=== PATIENT | female | born 1955 | race Caucasian/White ===

== ENCOUNTER → 2024-02-15 10:51 | Outpatient (REF) | payer OTHER, SELFPAY | LOC: HWRAD 10:51 | PROVIDERS: ATTENDING PHYSICIAN Internal Medicine Critical Care Medicine; FAMILY PHYSICIAN Nurse Practitioner Family | DX: Z87.891 Personal history of nicotine dependence (principal) | CPT/HCPCS: 71271 ==

== ENCOUNTER 2024-06-09 20:07 | Inpatient (IN) | payer OTHER, SELFPAY ==
[2024-06-09] VITALS (8 sets, daily range): BP systolic 105–177; BP diastolic 67–104; BMI 21.0
--- NOTE | 2024-06-09 13:00 | ED.GENMED ---
ED Provider Triage
<Darryn Huertas PA-C - Last Filed: 06/09/24 15:41>
-
Patient seen by provider in Triage?: Seen in Triage
69 yo female presents with SOB and cough/congestion x 2 days. hx of COPD. Wheezing when lying flat. No f/c/s
Lungs clear on auscultation, looks well
Check viral swabs and CXR
History of Present Illness
<Darryn Huertas PA-C - Last Filed: 06/09/24 15:41>
General
Chief Complaint: Cold/Flu/URI Symptoms
Time Seen by Provider: 06/09/24 17:38
<Vito Coronado MD - Last Filed: 06/10/24 10:25>
General
Source: patient
Exam Limitations: none
Nursing documentation reviewed up to this point in time: agreed with
History of Present Illness
History of Present Illness:
Patient with history of COPD, presents ED secondary to worsening cough with shortness of breath over the past 2 days. Denies fever but reports chills sensation. Denies chest pain. Denies nausea, vomiting, or diarrhea. Denies rash. Denies
headache. Denies sore throat. Patient does report decreased appetite. Denies sick contact. Denies recent travel.
Review of Systems
<Vito Coronado MD - Last Filed: 06/10/24 10:25>
Review of Systems
Allergies reviewed?: Yes
All Other Systems: ROS reviewed and negative except as documented in HPI and ROS
Constitutional: Reports chills; Denies fever
EENT: Reports no symptoms
Respiratory: Reports cough and trouble breathing
Cardiac: Reports no symptoms; Denies chest pain
ABD/GI: Reports no symptoms; Denies vomiting or diarrhea
Musculoskeletal: Reports no symptoms
Skin: Reports no symptoms
Neurological: Reports no symptoms
Phy Exam
<Vito Coronado MD - Last Filed: 06/10/24 10:25>
Physical Exam
Physical Exam:
Physical Exam
General: mild respiratory distress, not acutely ill. afebrile
Head: nc/at. eomi
Neck: supple. normal range of motion.
Heart: s1/s2 regular rate and rhythm, no murmur. equal radial pulses.
Lungs: mild respiratory distress. diffuse expiratory wheezing bilaterally. mild use of intercostal muscles noted
Abdomen: normal bowel sounds. not tender.
Neuro: alert and oriented. no focal neurological deficits
Skin: no rash
Psychiatric: well kept. interactive and cooperative
Extremities: no edema. no calf tenderness.
Course
<Darryn Huertas PA-C - Last Filed: 06/09/24 15:41>
Orders/Labs/Results
Orders:
Orders
06/09/24 13:03
CR Chest - 2 Views Urgent
Comment:
Reason For Exam: sob
06/09/24 13:21
COVID-19 Antigen Urgent
Source: Nasal Swab
Influenza A+B Rapid Molecular Urgent
BUNNY Source: Nasal Swab
Specimen Description:
06/09/24 Dinner
Regular
At Your Request: Full Participation
06/09/24 15:49
Complete Blood Count/With Diff Urgent
Comprehensive Metabolic Panel Urgent
06/09/24 18:02
Albuterol Nebs [Ventolin Nebules] 2.5 mg INH R NOW STA
Dexamethasone Sod Phosphate [Decadron] 4 mg IV NOW STA
Guaifenesin/Codeine Solution [Robitussin AC] 10 ml PO NOW STA
Ipratropium/Albuterol Sulfate [Duoneb] 3 ml INH R NOW STA
LevoFLOXacin 500 MG/100 ML [Levaquin] 500 mg in 100 ml IV NOW
06/09/24 18:03
0.9% Sodium Chloride 500 ml [Nss] 500 ml IV BOLUS
06/09/24 18:09
Acetaminophen [Tylenol] 650 mg PO NOW STA
06/09/24 18:32
Respiratory Syncytial Virus Urgent
BUNNY Source: Nasal Swab
Specimen Description:
Date Specimen was Collected: 06/09/24
Time Specimen was Collected: 17:42
06/09/24 18:34
Admit/Transfer Patient As Directed
Co-Sign Provider:
Level of Care: Inpatient admission
Assign to:: IMU- Intermediate Care
Physician / Group: hospitalist
Diagnosis: pneumonia
Reason for Hospitalization: hypoxia
Expected length of stay greater than two midnights?: Yes
ELOS- Estimated Length of Stay in days: 2
I certify the patient meets the requirements for IP care: Yes
PRN Pain Medication Management As Directed
May give lesser potent ordered pain med per pt: Yes
preference::
Protocol:: Medication orders for pain may be administered in a
manner that supports deferring to patient preference
when the pt is:
- Requesting an ordered lesser potent pain medication.
Least to most potent pain medications are defined
as: acetaminophen < NSAID < tramadol < opioids
(morphine, oxycodone, hydromorphone).
- Requesting a lesser dose of the same medication IF
ORDERED.
- Requesting a less intrusive route of administration
if both routes are prescribed by the provider (PO <
IV).
06/09/24 18:35
Code Status As Directed
Resuscitation Status: Full Code
06/09/24 18:56
PRN Pain Medication Management As Directed
May give lesser potent ordered pain med per pt: Yes
preference::
Protocol:: Medication orders for pain may be administered in a
manner that supports deferring to patient preference
when the pt is:
- Requesting an ordered lesser potent pain medication.
Least to most potent pain medications are defined
as: acetaminophen < NSAID < tramadol < opioids
(morphine, oxycodone, hydromorphone).
- Requesting a lesser dose of the same medication IF
ORDERED.
- Requesting a less intrusive route of administration
if both routes are prescribed by the provider (PO <
IV).
06/09/24 22:57
Acetaminophen [Tylenol] 650 mg PO Q4HPRN PRN
Atorvastatin [Lipitor] 10 mg PO HS
Guaifenesin/Dextromethorphan [Robitussin Dm] 5 ml PO Q6HPRN PRN
Ipratropium/Albuterol Sulfate [Duoneb] 3 ml INH R Q4HPRN PRN
Loperamide [Imodium] 2 mg PO Q6HPRN PRN
06/09/24 22:57
Legionella Urinary Antigen Routine
BUNNY Source: Urine
Specimen Description:
Respiratory Culture/Gram Stain Urgent
BUNNY Source: Sputum
Specimen Description:
Activity As Directed
Activity Level: Out of Bed-Early Mobility
Intake/ Output As Directed
Frequency: Per unit guidelines
Vital Signs As Directed
Frequency: Per unit guidelines
Weight As Directed
Frequency: Once
Comment: on admission
O2 Therapy [RESP] Routine
Nasal Cannula Liter Flow: 2 LPM
Titrate/Wean O2 to maintain O2 sat greater than (%): 92
Special Instructions: Wean as tolerated
Pulse Ox/cont/shift [RESP] Routine
Quantity: 1
Special Instructions: notify provider if SPO2 < 91%
Rx Incentive Spirometry [RESP] Routine
Frequency: q1h while awake
Pt Eval And Treat Routine
Activity Level: With Assistance
DX Deep Vein Thrombosis Video Routine
06/10/24 04:25
Basic Metabolic Panel IN AM
Complete Blood Count/No Diff IN AM
06/10/24 06:00
MethylPREDNISolone PF [Solu-Medrol Pf] 40 mg IV Q12H
06/10/24 18:00
Enoxaparin Sodium [Lovenox] 40 mg SC QPM
LevoFLOXacin 750 MG/150 ML [Levaquin] 750 mg in 150 ml IV Q24H
Abnormal Lab Results
06/09/24
15:49
WBC 14.8 H 10^3/uL
(4.8-10.8)
RBC 4.11 L 10^6/uL
(4.20-5.40)
MCHC 32.6 L g/dL
(33.0-37.0)
Abs Immat Gran (auto) 0.1 H 10^3/uL
(0-0.05)
Absolute Neuts (auto) 12.2 H 10^3/uL
(1.4-6.5)
Absolute Monos (auto) 0.9 H 10^3/uL
(0.1-0.6)
Neutrophils % 82.2 H %
(42.2-75.2)
Lymphocytes % 10.8 L %
(20.5-51.1)
Sodium 134 L mmol/L
(135-145)
BUN 19 H mg/dl
(7-17)
Glucose 117 H mg/dl
(70-99)
06/09/24 15:49
06/09/24 15:49
Vital Signs
Initial and Last Documented VS:
Initial Vital Signs
Temp Pulse Resp BP Pulse Ox
99.8 F 105 20 110/67 92
06/09/24 13:00 06/09/24 13:00 06/09/24 13:00 06/09/24 13:00 06/09/24 13:00
Last Documented Vital Signs
Temp Pulse Resp BP Pulse Ox
97.5 F 77 18 116/65 94
06/10/24 07:05 06/10/24 08:06 06/10/24 08:06 06/10/24 06:00 06/10/24 08:06
<Vito Coronado MD - Last Filed: 06/10/24 10:25>
Orders/Labs/Results
Orders:
Orders
06/09/24 13:03
CR Chest - 2 Views Urgent
Comment:
Reason For Exam: sob
06/09/24 13:21
COVID-19 Antigen Urgent
Source: Nasal Swab
Influenza A+B Rapid Molecular Urgent
BUNNY Source: Nasal Swab
Specimen Description:
06/09/24 Dinner
Regular
At Your Request: Full Participation
06/09/24 15:49
Complete Blood Count/With Diff Urgent
Comprehensive Metabolic Panel Urgent
06/09/24 18:02
Albuterol Nebs [Ventolin Nebules] 2.5 mg INH R NOW STA
Dexamethasone Sod Phosphate [Decadron] 4 mg IV NOW STA
Guaifenesin/Codeine Solution [Robitussin AC] 10 ml PO NOW STA
Ipratropium/Albuterol Sulfate [Duoneb] 3 ml INH R NOW STA
LevoFLOXacin 500 MG/100 ML [Levaquin] 500 mg in 100 ml IV NOW
06/09/24 18:03
0.9% Sodium Chloride 500 ml [Nss] 500 ml IV BOLUS
06/09/24 18:09
Acetaminophen [Tylenol] 650 mg PO NOW STA
06/09/24 18:32
Respiratory Syncytial Virus Urgent
BUNNY Source: Nasal Swab
Specimen Description:
Date Specimen was Collected: 06/09/24
Time Specimen was Collected: 17:42
06/09/24 18:34
Admit/Transfer Patient As Directed
Co-Sign Provider:
Level of Care: Inpatient admission
Assign to:: IMU- Intermediate Care
Physician / Group: hospitalist
Diagnosis: pneumonia
Reason for Hospitalization: hypoxia
Expected length of stay greater than two midnights?: Yes
ELOS- Estimated Length of Stay in days: 2
I certify the patient meets the requirements for IP care: Yes
PRN Pain Medication Management As Directed
May give lesser potent ordered pain med per pt: Yes
preference::
Protocol:: Medication orders for pain may be administered in a
manner that supports deferring to patient preference
when the pt is:
- Requesting an ordered lesser potent pain medication.
Least to most potent pain medications are defined
as: acetaminophen < NSAID < tramadol < opioids
(morphine, oxycodone, hydromorphone).
- Requesting a lesser dose of the same medication IF
ORDERED.
- Requesting a less intrusive route of administration
if both routes are prescribed by the provider (PO <
IV).
06/09/24 18:35
Code Status As Directed
Resuscitation Status: Full Code
06/09/24 18:56
PRN Pain Medication Management As Directed
May give lesser potent ordered pain med per pt: Yes
preference::
Protocol:: Medication orders for pain may be administered in a
manner that supports deferring to patient preference
when the pt is:
- Requesting an ordered lesser potent pain medication.
Least to most potent pain medications are defined
as: acetaminophen < NSAID < tramadol < opioids
(morphine, oxycodone, hydromorphone).
- Requesting a lesser dose of the same medication IF
ORDERED.
- Requesting a less intrusive route of administration
if both routes are prescribed by the provider (PO <
IV).
06/09/24 22:57
Acetaminophen [Tylenol] 650 mg PO Q4HPRN PRN
Atorvastatin [Lipitor] 10 mg PO HS
Guaifenesin/Dextromethorphan [Robitussin Dm] 5 ml PO Q6HPRN PRN
Ipratropium/Albuterol Sulfate [Duoneb] 3 ml INH R Q4HPRN PRN
Loperamide [Imodium] 2 mg PO Q6HPRN PRN
06/09/24 22:57
Legionella Urinary Antigen Routine
BUNNY Source: Urine
Specimen Description:
Respiratory Culture/Gram Stain Urgent
BUNNY Source: Sputum
Specimen Description:
Activity As Directed
Activity Level: Out of Bed-Early Mobility
Intake/ Output As Directed
Frequency: Per unit guidelines
Vital Signs As Directed
Frequency: Per unit guidelines
Weight As Directed
Frequency: Once
Comment: on admission
O2 Therapy [RESP] Routine
Nasal Cannula Liter Flow: 2 LPM
Titrate/Wean O2 to maintain O2 sat greater than (%): 92
Special Instructions: Wean as tolerated
Pulse Ox/cont/shift [RESP] Routine
Quantity: 1
Special Instructions: notify provider if SPO2 < 91%
Rx Incentive Spirometry [RESP] Routine
Frequency: q1h while awake
Pt Eval And Treat Routine
Activity Level: With Assistance
DX Deep Vein Thrombosis Video Routine
06/10/24 04:25
Basic Metabolic Panel IN AM
Complete Blood Count/No Diff IN AM
06/10/24 06:00
MethylPREDNISolone PF [Solu-Medrol Pf] 40 mg IV Q12H
06/10/24 18:00
Enoxaparin Sodium [Lovenox] 40 mg SC QPM
LevoFLOXacin 750 MG/150 ML [Levaquin] 750 mg in 150 ml IV Q24H
Abnormal Lab Results
06/09/24
15:49
WBC 14.8 H 10^3/uL
(4.8-10.8)
RBC 4.11 L 10^6/uL
(4.20-5.40)
MCHC 32.6 L g/dL
(33.0-37.0)
Abs Immat Gran (auto) 0.1 H 10^3/uL
(0-0.05)
Absolute Neuts (auto) 12.2 H 10^3/uL
(1.4-6.5)
Absolute Monos (auto) 0.9 H 10^3/uL
(0.1-0.6)
Neutrophils % 82.2 H %
(42.2-75.2)
Lymphocytes % 10.8 L %
(20.5-51.1)
Sodium 134 L mmol/L
(135-145)
BUN 19 H mg/dl
(7-17)
Glucose 117 H mg/dl
(70-99)
06/09/24 15:49
06/09/24 15:49
Vital Signs
Initial and Last Documented VS:
Initial Vital Signs
Temp Pulse Resp BP Pulse Ox
99.8 F 105 20 110/67 92
06/09/24 13:00 06/09/24 13:00 06/09/24 13:00 06/09/24 13:00 06/09/24 13:00
Last Documented Vital Signs
Temp Pulse Resp BP Pulse Ox
97.5 F 77 18 116/65 94
06/10/24 07:05 06/10/24 08:06 06/10/24 08:06 06/10/24 06:00 06/10/24 08:06
<Vito Coronado MD - Last Filed: 06/10/24 10:25>
MDM/Problems Addressed
MDM/Problems Addressed:
History, exam, and chest x-ray consistent with pneumonia. Patient with diffuse wheezing noted on exam along with use of intercostal muscles, concerning for potential respiratory failure without further treatment. As such, patient will be admitted
for IV antibiotics and continual treatment, i.e. nebulizer treatments/steroids. In light of patient's recent history of C. difficile infection from ampicillin, patient will be started on Levaquin.
<Vito Coronado MD - Last Filed: 06/10/24 10:25>
*Critical Care Note
Total Time (30-74mins, 75-104mins- exclusive of procedures): Not Applicable
<Darryn Huertas PA-C - Last Filed: 06/09/24 15:41>
Update Note
Update Note:
1540: CXR with multifocal PNA. Will send labs. Respiratory status stable, may be suitable for oupatient. Of note did have C diff recently, will need prophylactic Vanco
ED Attending Note
<Darryn Huertas PA-C - Last Filed: 06/09/24 15:41>
-
Portions of this chart may have been created with voice recognition software.� Occasional wrong word or��sound alike� substitutions may have occurred due to the inherent limitations of voice recognition software.
Discharge Plan
Departure
Patient Disposition: Admit
Date of Disposition: 06/09/24
Time of Disposition: 18:07
Admit to: IMU
Presentation/result/management discussed w/ accepting MD/DO: Hospitalist
Discharge Problem:
Pneumonia
Interventions
Interventions:
*Risk Screen - Suicide Last Done: 06/09/24 13:00
*General Assessment Last Done: 06/09/24 13:00
*Neglect/Abuse Screening Last Done: 06/09/24 13:00
*ED COVID-19 Vaccine History Last Done: 06/09/24 21:40
*Nursing Disposition Last Done: 06/09/24 23:13
AT-Bsyjba-Knidwiczfl Assessment Last Done: 06/09/24 21:40
ED- Pulmonary Assessment Last Done: 06/09/24 21:40
Discharge Date and Time
Discharge Date/Time: 06/09/24 23:15
[2024-06-09 13:55] LABS: COVID-19 Antigen Negative (Negative)
[2024-06-09 16:00] LABS: % Basophils 0.2 % (0-2); % Immature Granulocytes 0.4 % (0-0.5); % Lymphocytes 10.8 % (20.5-51.1); % Monocytes 6.4 % (1.7-9.3); % Neutrophils 82.2 % (42.2-75.2); Absolute Immature Granulocytes 0.1 10^3/uL (0-0.05); Absolute Lymphocytes 1.6 10^3/uL (1.2-3.4); Absolute Monocytes 0.9 10^3/uL (0.1-0.6); Absolute Neutrophils 12.2 10^3/uL (1.4-6.5); Hematocrit 38.6 % (37.0-47.0); Hemoglobin 12.6 g/dL (12.0-16.0); Mean Corp Hgb Conc. 32.6 g/dL (33.0-37.0); Mean Corpuscular Hgb 30.7 pg (27.0-31.0); Mean Corpuscular Volume 93.9 fL (81.0-99.0); Mean Platelet Volume 8.7 fL (7.4-10.4); Nucleated Red Blood Cells % 0 %; Platelet Count 370 10^3/uL (130-400); Red Blood Cell Count 4.11 10^6/uL (4.20-5.40); Red Cell Dist. Width 13.1 % (11.5-14.5); White Blood Cell Count 14.8 10^3/uL (4.8-10.8)
[2024-06-09 16:11] LABS: ALT (SGPT) 26 U/L (0-35); AST (SGOT) 30 U/L (14-36); Albumin 3.7 g/dl (3.5-5.0); Alkaline Phosphatase 96 U/L (38-126); Blood Urea Nitrogen 19 mg/dl (7-17); Calcium 8.7 mg/dl (8.4-10.2); Carbon Dioxide 22 mmol/L (22-30); Chloride 99 mmol/L (98-107); Glucose 117 mg/dl (70-99); Potassium 3.7 mmol/L (3.5-5.1); Sodium 134 mmol/L (135-145); Total Bilirubin 0.9 mg/dl (0.2-1.3); Total Protein 6.8 g/dl (6.3-8.2); eGFR > 60.00
[2024-06-09] MEDS: DUONEB 3 ML INH (18:17)
[2024-06-09] MEDS: VENTOLIN NEBULES 2.5 MG INH (18:17)
[2024-06-09] MEDS: DECADRON 4 MG IV (18:25)
[2024-06-09] MEDS: ROBITUSSIN AC 10 ML PO (18:25)
[2024-06-09] MEDS: TYLENOL 650 MG PO (18:25)
[2024-06-09] MEDS: LEVAQUIN 100 IV (18:26)
[2024-06-09] MEDS: NSS 500 IV (18:27)
--- NOTE | 2024-06-09 18:39 | HPS.HSE ---
Family Physician
-
Family Physician: BON Corona
Chief Complaint
-
Cough and SOB
History of Present Illness
This is a 69 y.o female with h/o COPD not on home O2 presenting to ED with 2 days of cough and shortness of breath.
Patient reported that she just completed a course of vancomycin on the for CAD for which she encountered after being treated with oral ampicillin/amoxicillin for bronchitis. She states she last had an episode of diarrhea several days prior to
that but 2 days ago she had diarrhea and then started having cough and shortness of breath. Cough is productive of copious amount of sputum. She reports that she has dyspnea on exertion and could not catch her breath. She reported having chills
but did not report any cristiane fevers. She has no known sick contacts. She reports her prior COPD exacerbation was in the distant past. She denies having any chest pain. She denies palpitations. She denies nausea vomiting.
In the ED he was afebrile, blood pressure was stable at 110/67 with a pulse of 105. She was satting 92% on room air and desats with ambulation. Temp was 99.8. Chest x-ray shows patchy right lower lobe infiltrate as well as small left lower lobe
opacity. She has severe end-stage emphysema on x-ray. She had leukocytosis to 14.8 with normal hemoglobin and platelet counts. Her electrolytes BUN/creatinine were within the normal range.
Medical History
Past Medical History
Past Medical History: Reports Cancer (Breast cancer status post right breast lumpectomy.)
Past Surgical History: Reports Other (Right breast lumpectomy)
Social History
Tobacco: Former Smoker
Alcohol: Occasional
Drug: None
Personal:
Living: With Family
Employment: Retired
Family History
Family History: Not pertinent
Allergies / Home Medications
Allergies reflects when Allergies were last updated in [facility].
Home Medications with original date entered in [facility]
Allergy/Medication List:
Allergies
Allergy/AdvReac Type Severity Reaction Status Date / Time
No Known Allergies Allergy Verified 06/09/24 13:11
Home Medications
albuterol sulfate 90 mcg/actuation aerosol inhaler 2 puff inhalation R Q4HPRN PRN sob 06/09/24
atorvastatin 10 mg tablet 10 mg PO HS 06/09/24
fluticasone fur. 100 mcg-umeclid 62.5 mcg-vilant 25 mcg inhalat.powder (Trelegy Ellipta) 1 inh inhalation R DAILY 06/09/24
ibuprofen 200 mg tablet 400 mg PO Q8HPRN PRN mild pain 06/09/24
loperamide 2 mg capsule 2 mg PO Q6HPRN PRN diarrhea 06/09/24
Review of Systems
-
History Source: Patient
Constitutional: Reports No Symptoms
EENT: Reports No Symptoms
Respiratory: Reports Cough and Trouble Breathing
Cardiac: Reports No Symptoms
Abdomen/GI: Reports Diarrhea
: Reports No Symptoms
Musculoskeletal: Reports No Symptoms
Skin: Reports No Symptoms
Neurological: Reports No Symptoms
Endocrine: Reports No Symptoms
Hematologic/Lymphatic: Reports No Symptoms
Psych: Reports No Symptoms
Physical Exam
Vital Signs
Vital Signs
Temp Pulse Resp BP Pulse Ox
99.8 F 105 20 110/67 92
06/09/24 13:00 06/09/24 13:00 06/09/24 13:00 06/09/24 13:00 06/09/24 13:00
Physical Exam
General: Well Developed, Well Nourished and Respiratory Distress
HEENT: NormoCephalic, Anicteric, Moist mucous membranes and Atraumatic
Respiratory: Clear, Accessory Resp Muscle Use and Decreased Breath Sounds
Cardiac: S1/S2, Regular Rhythm and Tachycardia
Breast: Deferred by me
GI: Soft, Non Tender, Non Distended and Normal Bowel Sounds
Rectal: Deferred by Provider
Genito-urinary: Deferred by me
Musculoskeletal: No Clubbing, No Cyanosis and No Edema
Skin: Warm
Neuro: AO x 3 and Nonfocal/grossly intact
Hematologic/Lymphatic: No Lymphadenopathy
Psych: Calm
Laboratory Results
-
06/09/24 15:49
06/09/24 15:49
Laboratory Results
Total Bilirubin 0.9 mg/dl (0.2-1.3) 06/09/24 15:49
AST 30 U/L (14-36) 06/09/24 15:49
ALT 26 U/L (0-35) 06/09/24 15:49
Alkaline Phosphatase 96 U/L (38-126) 06/09/24 15:49
Data Reviewed
-
Diagnostic Radiology: Image Personally Visualized and interpreted and Report Reviewed by me
Lab Data: Labs Reviewed by me
Old Records: Reviewed
Impression/Plan
-
IMPRESSION:
69-year-old female with past medical history of COPD not on home O2 presents to the emergency department with 2 days of cough and shortness of breath. Found to have bilateral lung pneumonia most notable in the right lower lobe as well as in the
left lower lobe. She is hypoxic. She has low-grade temps and has leukocytosis. Mild wheezing on exam but increased work of breathing and accessory muscle use with hypoxia c/w significant exacerbation
PLAN:
1. Pneumonemia - community aqcuired pneumonia. History of recent amoxicillin use. Also history of Cdiff s/p Vanc ending 06/06
- admit to IMU due to respiratory distress
- check legionella ag
- continue Levofloxacin (recent amoxicillin use)
- supportive care with antitussives, oxygen and antipyretics
- incentive spirometry
2. COPD Exacerbation - Hypoxia with high WOB exacerbation 2/2 pna
- O2 to keep sat > 92%
- continue ics/laba
- nebs q4 prn
- solu-medrol 40 q 12 and taper
DVT PPX - lovenox sq
Code status - Full code
[2024-06-09] MEDS: ROBITUSSIN DM 5 ML PO (23:45)
[2024-06-09] MEDS: LIPITOR 10 MG PO (23:45)
--- NOTE | 2024-06-09 23:45 | PTCARENOTE ---
Pt admitted to IMU via stretcher from ED. Transferred self to bed from stretcher without issue. Slightly HOSKINS, tachypneic. Received on 3L NC from ED pox 92%. EW throughout. RT with pt instructing on IS. SR/ST/PVC on CM. Afebrile. No diarrhea per pt
since arriving at hospital. On EP for recent C.Diff. Skin intact. Robitussin given for cough with good relief. Oriented to room and surroundings. Call pond within reach. Will continue to monitor.
[2024-06-10] VITALS (13 sets, daily range): BP systolic 99–134; BP diastolic 60–89; PULSE 83
[2024-06-10 04:58] LABS: Hematocrit 37.1 % (37.0-47.0); Hemoglobin 11.7 g/dL (12.0-16.0); Mean Corp Hgb Conc. 31.5 g/dL (33.0-37.0); Mean Corpuscular Hgb 30.3 pg (27.0-31.0); Mean Corpuscular Volume 96.1 fL (81.0-99.0); Mean Platelet Volume 8.8 fL (7.4-10.4); Platelet Count 326 10^3/uL (130-400); Red Blood Cell Count 3.86 10^6/uL (4.20-5.40); Red Cell Dist. Width 12.9 % (11.5-14.5); White Blood Cell Count 15.1 10^3/uL (4.8-10.8)
[2024-06-10] MEDS: SOLU-MEDROL PF 40 MG IV ×2 (05:04→17:07)
[2024-06-10] MEDS: FLUSH (NSS) 2 FLUSH IV (05:04)
[2024-06-10 05:14] LABS: Blood Urea Nitrogen 15 mg/dl (7-17); Calcium 8.8 mg/dl (8.4-10.2); Carbon Dioxide 24 mmol/L (22-30); Chloride 105 mmol/L (98-107); Estimated Creatinine Clearance 73 ml/min; Glucose 156 mg/dl (70-99); Potassium 4.2 mmol/L (3.5-5.1); Sodium 139 mmol/L (135-145); eGFR > 60.00
[2024-06-10] MEDS: SPIRIVA RESPIMAT 2.5 MCG 2 PUFF INH (07:58)
[2024-06-10] MEDS: SYMBICORT 80/4.5 MCG INHALER 2 PUFF INH ×2 (07:59→19:46)
--- NOTE | 2024-06-10 09:54 | W.PN.HOSP.TC ---
Today's Communication/Plan
-
IV steroids. IV antibiotics. Oral antibiotics.
Assessment / Plan
Assessment / Plan
Physical Exam
General: Acutely ill
HEENT: NormoCephalic, Anicteric, Moist mucous membranes and Atraumatic
Respiratory: Scattered wheezes bilateral and Decreased Breath Sounds
Cardiac: S1/S2, Regular Rhythm and Tachycardia
Breast: Deferred by me
GI: Soft, Non Tender, Non Distended and Normal Bowel Sounds
Rectal: Deferred by Provider
Genito-urinary: Deferred by me
Musculoskeletal: No Clubbing, No Cyanosis and No Edema
Skin: Warm
Neuro: AO x 3 and Nonfocal/grossly intact
Hematologic/Lymphatic: No Lymphadenopathy
Psych: Calm
A/P:
Community-acquired pneumonia:
Continue IV antibiotics
Add vancomycin prophylactically 125 mg twice daily since she had recent C. difficile
PT OT eval
COPD exacerbation:
Continue IV steroids
Continue bronchodilators
Continue Symbicort
Continue Spiriva
Leukocytosis:
Due to pneumonia and reactive due to steroids
Monitor trend
Anemia:
Likely delusional component
Monitor trend
Hyponatremia:
Improving
Monitor
Hyperlipidemia:
Continue statin, atorvastatin 10 mg p.o. nightly
DVT prophylaxis:
Lovenox SQ
CODE STATUS:
Full code
Time spent 54-minutes
Anticipated Discharge: 24 - 48 hours
Subjective/Interval History
-
Date of Service: June 10, 2024
Patient still have some cough and shortness of breath but overall feels better. Afebrile
Objective Data
-
Labs:
Laboratory Results
06/10/24
04:25
WBC 15.1 H
Hgb 11.7 L
Hct 37.1
Plt Count 326
Sodium 139
Potassium 4.2
Chloride 105
Carbon Dioxide 24
BUN 15
Creatinine 0.5 L
Glucose 156 H
Calcium 8.8
Vital Signs:
Vital Signs
Temp Pulse Resp BP Pulse Ox
97.6 F 77 18 116/65 94
06/10/24 04:28 06/10/24 08:06 06/10/24 08:06 06/10/24 06:00 06/10/24 08:06
I&O
06/09/24 06/10/24 06/11/24
06:59 06:59 06:59
Intake Total 700 / 700
Output Total 450 / 450
Balance 250 / 250
--- NOTE | 2024-06-10 10:08 | CM ---
Initial Assessment completed at bedside
Pharmacy verified: [facility] @ [address] [place] [address]
Lives alone in [facility] home; full bath on 1st floor; sleeps on 1st floor
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
Transport home will be provided by family or friend
No DME
No SNF
Plan: Discharge to home; CM will monitor for needs
[2024-06-10] MEDS: FIRVANQ 125 MG PO ×2 (11:41→19:42)
[2024-06-10] MEDS: LEVAQUIN 150 IV (17:06)
[2024-06-10] MEDS: LOVENOX 40 MG SC (17:07)
[2024-06-10] MEDS: LIPITOR 10 MG PO (19:42)
[2024-06-10] MEDS: FIRVANQ PO (19:44)
[2024-06-10] MEDS: ROBITUSSIN DM 5 ML PO (21:27)
[2024-06-11] VITALS (9 sets, daily range): BP systolic 107–151; BP diastolic 75–98
[2024-06-11 04:02] LABS: % Basophils 0.2 % (0-2); % Immature Granulocytes 0.6 % (0-0.5); % Lymphocytes 11.7 % (20.5-51.1); % Neutrophils 83.5 % (42.2-75.2); Absolute Immature Granulocytes 0.1 10^3/uL (0-0.05); Absolute Monocytes 0.3 10^3/uL (0.1-0.6); Absolute Neutrophils 7.1 10^3/uL (1.4-6.5); Hematocrit 33.2 % (37.0-47.0); Hemoglobin 11.2 g/dL (12.0-16.0); Mean Corp Hgb Conc. 33.7 g/dL (33.0-37.0); Mean Corpuscular Hgb 30.6 pg (27.0-31.0); Mean Corpuscular Volume 90.7 fL (81.0-99.0); Mean Platelet Volume 9.7 fL (7.4-10.4); Nucleated Red Blood Cells % 0 %; Platelet Count 281 10^3/uL (130-400); Red Blood Cell Count 3.66 10^6/uL (4.20-5.40); Red Cell Dist. Width 12.7 % (11.5-14.5); White Blood Cell Count 8.5 10^3/uL (4.8-10.8)
--- NOTE | 2024-06-11 04:25 | PTCARENOTE ---
Pt resting well overnight. Continues on 2L NC. POX 92-96%. No C/O pain or discomfort. Assessment as documented and unchanged from beginning of shift. Turns self in bed. No bm overnight. VSS. Afebrile. Call pond remains within reach. Will continue to
monitor.
[2024-06-11 04:27] LABS: Blood Urea Nitrogen 29 mg/dl (7-17); Carbon Dioxide 24 mmol/L (22-30); Chloride 107 mmol/L (98-107); Estimated Creatinine Clearance 73 ml/min; Glucose 132 mg/dl (70-99); Potassium 4.2 mmol/L (3.5-5.1); Sodium 139 mmol/L (135-145); eGFR > 60.00
[2024-06-11] MEDS: SOLU-MEDROL PF 40 MG IV ×2 (05:54→20:08)
[2024-06-11] MEDS: FLUSH (NSS) 2 FLUSH IV (05:54)
[2024-06-11] MEDS: FIRVANQ 125 MG PO ×2 (08:26→20:08)
[2024-06-11] MEDS: SYMBICORT 80/4.5 MCG INHALER 2 PUFF INH ×2 (08:31→20:45)
[2024-06-11] MEDS: SPIRIVA RESPIMAT 2.5 MCG 2 PUFF INH (08:31)
--- NOTE | 2024-06-11 08:33 | W.PN.HOSP.TC ---
Today's Communication/Plan
-
On IV antibiotics and IV steroids.
Assessment / Plan
Assessment / Plan
Physical Exam
General: Acutely ill
HEENT: NormoCephalic, Anicteric, Moist mucous membranes and Atraumatic
Respiratory: Scattered wheezes bilateral and Decreased Breath Sounds
Cardiac: S1/S2, Regular Rhythm and Tachycardia
Breast: Deferred by me
GI: Soft, Non Tender, Non Distended and Normal Bowel Sounds
Rectal: Deferred by Provider
Genito-urinary: Deferred by me
Musculoskeletal: No Clubbing, No Cyanosis and No Edema
Skin: Warm
Neuro: AO x 3 and Nonfocal/grossly intact
Hematologic/Lymphatic: No Lymphadenopathy
Psych: Calm
A/P:
Community-acquired pneumonia:
Continue IV antibiotics
Add vancomycin prophylactically 125 mg twice daily since she had recent C. difficile
White blood cell count trending down
PT OT eval
COPD exacerbation:
Continue IV steroids and might be able to switch to oral tomorrow
Continue bronchodilators
Continue Symbicort
Continue Spiriva
Leukocytosis:
Due to pneumonia and reactive due to steroids
Monitor trend
Anemia:
Likely dilutional component
Monitor trend
Hyponatremia:
Improving
Monitor
Hyperlipidemia:
Continue statin, atorvastatin 10 mg p.o. nightly
DVT prophylaxis:
Lovenox SQ
CODE STATUS:
Full code
Anticipated Discharge: 24 - 48 hours
Subjective/Interval History
-
Date of Service: June 11, 2024
Patient feels better today. Less cough and shortness of breath
Objective Data
-
Labs:
Laboratory Results
06/11/24
03:27
WBC 8.5
Hgb 11.2 L
Hct 33.2 L
Plt Count 281
Sodium 139
Potassium 4.2
Chloride 107
Carbon Dioxide 24
BUN 29 H
Creatinine 0.5 L
Glucose 132 H
Calcium 9.0
Vital Signs:
Vital Signs
Temp Pulse Resp BP Pulse Ox
97.6 F 53 21 130/84 94
06/11/24 07:10 06/11/24 06:00 06/11/24 06:00 06/11/24 06:00 06/11/24 06:00
I&O
06/10/24 06/11/24 06/12/24
06:59 06:59 06:59
Intake Total 700 / 700 100 / 100
Output Total 450 / 450
Balance 250 / 250 100 / 100
[2024-06-11] MEDS: LEVAQUIN 150 IV (20:07)
[2024-06-11] MEDS: LOVENOX 40 MG SC (20:07)
[2024-06-11] MEDS: LIPITOR 10 MG PO (20:08)
[2024-06-12] MEDS: SOLU-MEDROL PF 40 MG IV ×2 (05:16→17:29)
[2024-06-12 07:25] VITALS: BP 131/78
[2024-06-12 09:05] LABS: % Immature Granulocytes 0.3 % (0-0.5); % Lymphocytes 16.5 % (20.5-51.1); % Monocytes 4.8 % (1.7-9.3); % Neutrophils 78.4 % (42.2-75.2); Absolute Monocytes 0.3 10^3/uL (0.1-0.6); Absolute Neutrophils 4.7 10^3/uL (1.4-6.5); Hematocrit 36.7 % (37.0-47.0); Hemoglobin 11.9 g/dL (12.0-16.0); Mean Corp Hgb Conc. 32.4 g/dL (33.0-37.0); Mean Corpuscular Hgb 30.7 pg (27.0-31.0); Mean Corpuscular Volume 94.8 fL (81.0-99.0); Mean Platelet Volume 9.2 fL (7.4-10.4); Nucleated Red Blood Cells % 0 %; Platelet Count 380 10^3/uL (130-400); Red Blood Cell Count 3.87 10^6/uL (4.20-5.40); Red Cell Dist. Width 12.8 % (11.5-14.5)
[2024-06-12 09:08] LABS: Blood Urea Nitrogen 32 mg/dl (7-17); Calcium 9.2 mg/dl (8.4-10.2); Carbon Dioxide 26 mmol/L (22-30); Chloride 104 mmol/L (98-107); Estimated Creatinine Clearance 73 ml/min; Glucose 112 mg/dl (70-99); Potassium 5.1 mmol/L (3.5-5.1); Sodium 138 mmol/L (135-145); eGFR > 60.00
[2024-06-12] MEDS: FIRVANQ 125 MG PO ×2 (10:58→20:29)
[2024-06-12] MEDS: SYMBICORT 80/4.5 MCG INHALER 2 PUFF INH ×2 (11:31→20:42)
[2024-06-12] MEDS: SPIRIVA RESPIMAT 2.5 MCG 2 PUFF INH (11:31)
--- NOTE | 2024-06-12 11:55 | CM ---
Chart reviewed and patient is currently on 2 liters of oxygen, plan to continue to wean, IV ABX and IV Steroids.
Plan; Home when stable.
--- NOTE | 2024-06-12 14:58 | W.PN.HOSP.TC ---
Today's Communication/Plan
-
wean off o2
adjust abx
Assessment / Plan
Assessment / Plan
Community-acquired pneumonia:
Acute hypoxic respite insufficiency
Continue IV antibiotics
Add vancomycin prophylactically 125 mg twice daily since she had recent C. difficile
White blood cell count trending down
Continue wean off oxygen as possible
Leukocytosis has normalized
COPD exacerbation:
Continue IV steroids and might be able to switch to oral tomorrow
Continue bronchodilators
Continue Symbicort
Continue Spiriva
Recovered C. difficile colitis
Patient finished course of oral vancomycin end of the May
patient had 2 [id number] C. difficile colitis episode, recommended to follow-up with ID for possible FMT evaluation
Anemia:
Likely dilutional component
Monitor trend
Hyponatremia:
Improving
Monitor
Hyperlipidemia:
Continue statin, atorvastatin 10 mg p.o. nightly
DVT prophylaxis: Lovenox SQ
CODE STATUS: Full code
Anticipated Discharge: Within 24 hours
Subjective/Interval History
-
Date of Service: June 12, 2024
Subjective feeling better
Remains on 2 L oxygen through nasal cannula
Objective Data
-
Labs:
Laboratory Results
06/12/24
07:39
WBC 6.0
Hgb 11.9 L
Hct 36.7 L
Plt Count 380 D
Sodium 138
Potassium 5.1
Chloride 104
Carbon Dioxide 26
BUN 32 H
Creatinine 0.6
Glucose 112 H
Calcium 9.2
Vital Signs:
Vital Signs
Temp Pulse Resp BP Pulse Ox
97.8 F 73 16 131/78 97
06/12/24 07:25 06/12/24 11:36 06/12/24 11:36 06/12/24 07:25 06/12/24 11:36
I&O
06/11/24 06/12/24 06/13/24
06:59 06:59 06:59
Intake Total 100 / 100 630 / 630
Balance 100 / 100 630 / 630
Review of Systems
-
Respiratory: Reports No Symptoms
Cardiac: Reports No Symptoms
Abdomen/GI: Reports No Symptoms
Physical Exam
-
General: No Apparent Distress and Comfortable
HEENT: Negative Oxygen
Respiratory: Clear to Auscultation
Cardiac: Regular Rhythm and S1/S2; Negative Murmur or Rub
GI: Soft, Nontender, Nondistended and Normal Bowel Sounds
Musculoskeletal: No Edema
Neuro: Awake, Alert, Oriented, No Motor Deficits and Nonfocal/Grossly Intact
Psych: Calm
[2024-06-12 15:30] VITALS: BP 130/88
[2024-06-12] MEDS: LOVENOX 40 MG SC (17:29)
[2024-06-12] MEDS: LIPITOR 10 MG PO (20:29)
[2024-06-12 23:18] VITALS: BP 116/69
[2024-06-13] MEDS: SOLU-MEDROL PF 40 MG IV ×2 (05:10→18:45)
[2024-06-13 07:38] VITALS: BP 137/88
[2024-06-13] MEDS: SPIRIVA RESPIMAT 2.5 MCG 2 PUFF INH (07:59)
[2024-06-13] MEDS: SYMBICORT 80/4.5 MCG INHALER 2 PUFF INH ×2 (07:59→20:49)
[2024-06-13 09:07] LABS: Hematocrit 40.3 % (37.0-47.0); Hemoglobin 13.1 g/dL (12.0-16.0); Mean Corp Hgb Conc. 32.5 g/dL (33.0-37.0); Mean Corpuscular Hgb 30.5 pg (27.0-31.0); Mean Corpuscular Volume 93.9 fL (81.0-99.0); Platelet Count 492 10^3/uL (130-400); Red Blood Cell Count 4.29 10^6/uL (4.20-5.40); Red Cell Dist. Width 12.7 % (11.5-14.5); White Blood Cell Count 7.6 10^3/uL (4.8-10.8)
[2024-06-13 09:26] LABS: Blood Urea Nitrogen 28 mg/dl (7-17); Carbon Dioxide 28 mmol/L (22-30); Chloride 103 mmol/L (98-107); Estimated Creatinine Clearance 73 ml/min; Glucose 107 mg/dl (70-99); Potassium 4.4 mmol/L (3.5-5.1); Sodium 139 mmol/L (135-145); eGFR > 60.00
[2024-06-13] MEDS: FIRVANQ 125 MG PO ×2 (11:04→20:33)
[2024-06-13] MEDS: OMNICEF 300 MG PO ×2 (11:04→20:33)
--- NOTE | 2024-06-13 12:49 | PTCARENOTE ---
Room air POX fluctuates up and down between 89-93%. Dr. Araujo updated.
[2024-06-13 13:00] VITALS: O2SAT 81
--- NOTE | 2024-06-13 13:23 | W.PN.HOSP.TC ---
Today's Communication/Plan
-
see note
Assessment / Plan
Assessment / Plan
Community-acquired pneumonia:
Acute hypoxic respite insufficiency
Continue IV antibiotics
Add vancomycin prophylactically 125 mg twice daily since she had recent C. difficile
White blood cell count trending down
Leukocytosis has normalized
Patient desaturating to 80-82% on room air with ambulation. monitor one more night in hospital on abx/steroids.
COPD exacerbation:
Continue IV steroids and might be able to switch to oral tomorrow
Continue bronchodilators
Continue Symbicort
Continue Spiriva
Recovered C. difficile colitis
Patient finished course of oral vancomycin end of the May
patient had 2 [id number] C. difficile colitis episode, recommended to follow-up with ID for possible FMT evaluation
Anemia:
Likely dilutional component
Monitor trend
Hyponatremia:
Improving
Monitor
Hyperlipidemia:
Continue statin, atorvastatin 10 mg p.o. nightly
DVT prophylaxis: Lovenox SQ
CODE STATUS: Full code
Anticipated Discharge: 24 - 48 hours
Subjective/Interval History
-
Date of Service: June 13, 2024
Continues to remain moderate oxygen through nasal cannula
No productive cough/fever
Objective Data
-
Labs:
Laboratory Results
06/13/24
08:20
WBC 7.6
Hgb 13.1
Hct 40.3
Plt Count 492 H D
Sodium 139
Potassium 4.4
Chloride 103
Carbon Dioxide 28
BUN 28 H
Creatinine 0.6
Glucose 107 H
Calcium 9.0
Vital Signs:
Vital Signs
Temp Pulse Resp BP Pulse Ox
98.5 F 77 16 137/88 92
06/13/24 07:38 06/13/24 08:08 06/13/24 08:08 06/13/24 07:38 06/13/24 08:08
I&O
06/12/24 06/13/24 06/14/24
06:59 06:59 06:59
Intake Total 630 / 630 1200 / 1200
Balance 630 / 630 1200 / 1200
Review of Systems
-
Respiratory: Reports No Symptoms
Cardiac: Reports No Symptoms
Abdomen/GI: Reports No Symptoms
Physical Exam
-
General: No Apparent Distress and Comfortable
HEENT: Oxygen
Cardiac: Regular Rhythm and S1/S2; Negative Murmur or Rub
GI: Soft, Nontender and Nondistended
Musculoskeletal: No Edema
Neuro: Awake, Alert, Oriented, No Motor Deficits and Nonfocal/Grossly Intact
Psych: Calm
--- NOTE | 2024-06-13 14:16 | CM ---
Patient to continue to wean off oxygen, plan is to home when stable.
Plan; Home when stable.
[2024-06-13 15:00] VITALS: BP 136/94
[2024-06-13] MEDS: LOVENOX 40 MG SC (18:45)
[2024-06-13] MEDS: FLUSH (NSS) 1 FLUSH IV (18:46)
[2024-06-13 23:15] VITALS: BP 117/69
[2024-06-13] MEDS: LIPITOR 10 MG PO (23:32)
[2024-06-14] MEDS: SOLU-MEDROL PF 40 MG IV (05:47)
[2024-06-14 07:00] VITALS: BP 146/100
[2024-06-14 08:11] LABS: Hemoglobin 13.6 g/dL (12.0-16.0); Mean Corp Hgb Conc. 33.2 g/dL (33.0-37.0); Mean Corpuscular Hgb 30.6 pg (27.0-31.0); Mean Corpuscular Volume 92.1 fL (81.0-99.0); Mean Platelet Volume 9.1 fL (7.4-10.4); Platelet Count 480 10^3/uL (130-400); Red Blood Cell Count 4.45 10^6/uL (4.20-5.40); Red Cell Dist. Width 12.6 % (11.5-14.5); White Blood Cell Count 8.2 10^3/uL (4.8-10.8)
[2024-06-14 08:38] LABS: Blood Urea Nitrogen 23 mg/dl (7-17); Calcium 9.1 mg/dl (8.4-10.2); Carbon Dioxide 27 mmol/L (22-30); Chloride 103 mmol/L (98-107); Estimated Creatinine Clearance 73 ml/min; Glucose 98 mg/dl (70-99); Sodium 137 mmol/L (135-145); eGFR > 60.00
[2024-06-14] MEDS: FIRVANQ 125 MG PO (09:02)
[2024-06-14] MEDS: SYMBICORT 80/4.5 MCG INHALER 2 PUFF INH (09:02)
[2024-06-14] MEDS: OMNICEF 300 MG PO (09:02)
[2024-06-14] MEDS: SPIRIVA RESPIMAT 2.5 MCG 2 PUFF INH (09:02)
--- NOTE | 2024-06-14 10:44 | PN.CDI ---
CDI
- -
CDI:
Physician Documentation Request
Admit Date: 06/09/24 20:07
Dear Doctor Van,
Patient is being treated for pneumonia and COPD exacerbation.
Sputum positive for Janet Albicans.
Pt currently being treated with Cefdinir and Vancomycin.
Based on the above, could you clarify in the Progress Notes further specificity regarding the known, suspected or likely type of pneumonia you are treating (recognizing the specific organism may not be known)?
Staph Pneumonia - indicate if MRSA or MSSA
Gram negative Pneumonia - indicate if Pseudomonas, Klebsiella or othe
Other organism - specify known or suspected type
Other type
Use of terms such as suspected, likely, concern for, or probable (associated with a specific diagnosis that is being evaluated, monitored, or treated as if it exists) are acceptable and can be coded in the inpatient setting, when documented at the
time of discharge.
Thank you,
Keely Gray RN, BSN
CDI Specialist
tiger text
Please use your independent medical judgment in providing your response.
--- NOTE | 2024-06-14 11:26 | W.PN.HOSP.TC ---
Addendum entered and electronically signed by Sam Araujo MD 06/14/24 13:31:
Patient is in need of oxygen on exertion due to pulse oximetry of 90% on room air at rest; 86% on room air with exertion.
Patient was placed on 2L O2 via nasal cannula with saturation of 91%. Oxygen will help to improve hypoxemia.
Patient is mobile within the home. Steroid/antibiotic therapy has been tried and is ineffective in treating hypoxemia-related symptoms.
Oxygen will improve the patient's symptoms.
Original Note:
Today's Communication/Plan
-
d/c home after o2 arrangment
Assessment / Plan
Assessment / Plan
Community-acquired pneumonia:
Acute hypoxic respite insufficiency
Continue IV antibiotics
Add vancomycin prophylactically 125 mg twice daily since she had recent C. difficile
White blood cell count trending down
Leukocytosis has normalized
Continue to desaturate to 87% on RA on activity, home o2 arrangement to be done
increasing abx coverage with ading doxy for atypical coverage
COPD exacerbation:
Continue IV steroids and might be able to switch to oral tomorrow
Continue bronchodilators
Continue Symbicort
Continue Spiriva
Recovered C. difficile colitis
Patient finished course of oral vancomycin end of the May
patient had 2 [id number] C. difficile colitis episode, recommended to follow-up with ID for possible FMT evaluation
Anemia:
Likely dilutional component
Monitor trend
Hyponatremia:
Improving
Monitor
Hyperlipidemia:
Continue statin, atorvastatin 10 mg p.o. nightly
DVT prophylaxis: Lovenox SQ
CODE STATUS: Full code
More than 30 minutes spent in discharge including
Final examination of the patient
Summarizing hospital stay
Instructions for continuing care to all relevant caregivers
Preparation of discharge records, prescriptions, and referral forms
Total time spent (in minutes): 40 mins
Anticipated Discharge: Today
Subjective/Interval History
-
Date of Service: June 14, 2024
continues to have some hypoxic with activity
no other issues reported
Objective Data
-
Labs:
Laboratory Results
06/14/24
07:47
WBC 8.2
Hgb 13.6
Hct 41.0
Plt Count 480 H
Sodium 137
Potassium 4.0
Chloride 103
Carbon Dioxide 27
BUN 23 H
Creatinine 0.6
Glucose 98
Calcium 9.1
Vital Signs:
Vital Signs
Temp Pulse Resp BP Pulse Ox
97.7 F 106 18 146/100 92
06/14/24 07:00 06/14/24 09:06 06/14/24 09:06 06/14/24 07:00 06/14/24 09:06
I&O
06/13/24 06/14/24 06/15/24
06:59 06:59 06:59
Intake Total 1200 / 1200 960 / 960
Balance 1200 / 1200 960 / 960
Review of Systems
-
Respiratory: Reports No Symptoms
Cardiac: Reports No Symptoms
Abdomen/GI: Reports No Symptoms
Physical Exam
-
General: No Apparent Distress and Comfortable
HEENT: Oxygen
Cardiac: Regular Rhythm and S1/S2; Negative Murmur or Rub
GI: Soft, Nontender and Nondistended
Musculoskeletal: No Edema
Neuro: Awake, Alert, Oriented, No Motor Deficits and Nonfocal/Grossly Intact
Psych: Calm
--- NOTE | 2024-06-14 12:09 | CM ---
Addendum entered by Mayela Centeno 06/14/24 14:36:
sound effects manager reviewed with patient visiting nurses and patient declined visiting nurses.
Addendum entered by Mayela Centeno 06/14/24 14:20:
All paperwork including script for home oxygen faxed to [facility] will be delivered to hospital today, and concentrator will be delivered this evening.
Original Note:
Chart reviewed and patient is for possible discharge to home today with home oxygen, patient has declined the need for visiting nurses.
Plan; Home with home oxygen from [facility] will await testing.
[2024-06-14] MEDS: VIBRAMYCIN 100 MG PO (12:22)
[2024-06-14 15:03] VITALS: BP 149/98
--- NOTE | 2024-06-14 15:55 | W.DCSUMMARY ---
Discharge Summary
Discharge Data
Date of Admission: 06/09/24
Date of Discharge: 06/14/24
-
Pending Results: No
Hospital Course
Discharging Physician : Dr Sam Araujo
Disposition : To home
Primary care physician : Dr Kortney Oconnor
Principal Discharge diagnosis :
Community-acquired pneumonia
Acute hypoxic respite insufficiency
Chronic obstructive pulmonary disease flareup
Recent clostridium difficile colitis x
Hyponatremia
Chronic Discharge diagnosis :
Hyperlipidemia
History of breast cancer
Hospital Course :
Patient is a 69-year-old female with above-mentioned past medical history came to ER for having new onset of shortness of breath/cough. Patient with history of COPD on exam was noted to be wheezing. Patient was found to be having COPD flareup.
Chest x-ray was done which showed new infiltrate and there was concern of ongoing bacterial pneumonia as well. Patient was started on oral antibiotics, as patient has just recovered from second episode of C. difficile patient was provided oral
vancomycin for prophylactic use. Over next 72 hours patient continued to improve and was able to be taken off of oxygen although with exertion patient was getting hypoxic. No home oxygen arrangement was done before discharge. Patient to follow-up
with primary care physician in office in 1 week.
Important imaging findings :
None
Procedure findings :
None
Discharge Plan
-
Patient Disposition: Home (Routine Discharge)
Discharge Diagnosis/Procedures: Community acquired pneumonia
Condition: Fair
Diet: Regular
Activity: As tolerated
Driving Restrictions: No driving for 24 hours
Bathing Restrictions: OK to Shower
Referrals:
Kortney Oconnor CRNP [Family Provider] - in one week
Prescriptions:
New
cefdinir 300 mg capsule
300 mg PO BID 3 Days Qty: 6 0RF
doxycycline hyclate 100 mg capsule
100 mg PO BID Qty: 6 0RF
vancomycin [Vancocin] 125 mg capsule
125 mg PO BID Qty: 14 0RF
Visbiome 112.5 billion cell capsule
2 cap PO DAILY Qty: 30 0RF
prednisone 10 mg Tablet
See Rx Instructions .ROUTE .COMPLEX Qty: 30 0RF
Rx Instructions:
Take By Mouth:
40 mg daily x3 days, 30 mg daily x3 days,
20 mg daily x3 days, 10 mg daily x3 days.
Continued
loperamide 2 mg Capsule
2 mg PO Q6HPRN PRN (Reason: diarrhea)
atorvastatin 10 mg Tablet
10 mg PO HS
ibuprofen 200 mg Tablet
400 mg PO Q8HPRN PRN (Reason: mild pain)
albuterol sulfate 90 mcg/actuation Hfa Aerosol Inhaler
2 puff INHALATION R Q4HPRN PRN (Reason: sob)
Trelegy Ellipta 100-62.5-25 mcg Blister With Device
1 inh INHALATION R DAILY
Discharge Orders:
Discharge Patient (As Directed); Ordered 06/14/24
Ordered By: Sam Araujo
Discharge Date and Time
Discharge Date/Time: 06/14/24 15:39
Print Language: TAJIK
== END 2024-06-14 15:39 | disposition home or self-care (01) | DRG 190 ==
LOC: 4 WEST ACU 20:07
PROVIDERS: Hospitalist; Physician Assistant; ADMITTING PHYSICIAN Internal Medicine; ATTENDING PHYSICIAN Hospitalist; EMERGENCY PHYSICIAN Emergency Medicine; FAMILY PHYSICIAN Nurse Practitioner Family
DX: J44.1 Chronic obstructive pulmonary disease with (acute) exacerbation (principal); J15.9 Unspecified bacterial pneumonia; E87.1 Hypo-osmolality and hyponatremia; J44.0 Chronic obstructive pulmonary disease with (acute) lower respiratory infection; R09.02 Hypoxemia; J43.9 Emphysema, unspecified; D64.9 Anemia, unspecified; E78.5 Hyperlipidemia, unspecified; R06.89 Other abnormalities of breathing; Z87.891 Personal history of nicotine dependence; Z85.3 Personal history of malignant neoplasm of breast; Z79.899 Other long term (current) drug therapy; Z99.81 Dependence on supplemental oxygen; Z79.51 Long term (current) use of inhaled steroids; Z11.52 Encounter for screening for COVID-19
CPT/HCPCS: 71046; 80048; 80053; 85025; 85027; 87070; 87205; 87449; 87502; 87807; 87811; 94640; 96365; 96375; 97161; 99285

== ENCOUNTER → 2024-07-11 11:40 | Outpatient (REF) | payer OTHER, SELFPAY | LOC: HWRAD 11:40 | PROVIDERS: ATTENDING PHYSICIAN Internal Medicine Critical Care Medicine; FAMILY PHYSICIAN Nurse Practitioner Family | DX: R91.8 Other nonspecific abnormal finding of lung field (principal) | CPT/HCPCS: 71250 ==

== ENCOUNTER → 2024-09-05 13:13 | Outpatient (REF) | payer OTHER, SELFPAY | LOC: HWRAD 13:13 | PROVIDERS: ATTENDING PHYSICIAN Internal Medicine Critical Care Medicine; FAMILY PHYSICIAN Nurse Practitioner Family | DX: Z87.01 Personal history of pneumonia (recurrent) (principal) | CPT/HCPCS: 71046 ==

== ENCOUNTER → 2024-11-29 12:49 | Outpatient (REF) | payer OTHER, SELFPAY | LOC: HWRAD 12:49 | PROVIDERS: ATTENDING PHYSICIAN Internal Medicine Critical Care Medicine; FAMILY PHYSICIAN Physician Assistant Medical | DX: R91.8 Other nonspecific abnormal finding of lung field (principal) | CPT/HCPCS: 71250 ==